=== PATIENT | female | born 1985 | race Caucasian/White ===

== ENCOUNTER → 2017-07-18 | Day surgery (SDC) | payer BC ==
[~2017-07-18] VITALS: Ht 162.6 cm; Wt 124.1 kg
[~2017-07-18] MED LIST: AMOX500T PO; AMT50 PO; CRAN500C2; FERR1TAB61; LIDOCAINE HCL 2% 2 ML VIAL (20MG/ML) ONE; MAGN400T6 PO; MECL1TAB42 PO; MIDAZOLAM HCL 1 MG/ML 2ML VIAL ONE; OMEP20TA PO; ONDANSETRON INJ 2 MG/ML 2 ML VIAL ONE; PRED10TA PO; PROPOFOL IV EMULSION 10 MG/ML 20 ML VIAL IV ONE; SODIUM CHLORIDE 0.9% 500ML 500 ML IV ONE; SUCR1TAB29 PO; TUMERIC
[2017-07-18 10:31] VITALS: Ht 162.6 cm; Wt 124.1 kg
[2017-07-18 10:46] VITALS: TEMP 37
--- NOTE | 2017-07-18 11:15 | Endo History and Physical ---
History & Physical Date of Service: Jul 18, 2017. Chief Complaint: Dysphagia Referring Physician: Felisa Bradford History of Present Illness patient with dysphagia Past Surgical History Hx Cardiac Surgery: No Hx Internal Defibrillator: No Hx Pacemaker: No Hx Abdominal Surgery: Yes (Lilo, ) Hx of Implantable Prosthesis: No Hx Post-Op Nausea and Vomiting: No Hx Cancer Surgery: No Hx Thoracic Surgery: No Hx Orthopedic: No Hx Urinary Tract Surgery: No Family History IBD Social History Smoking Status: Never Smoker Hx Substance Use: No Hx Alcohol Use: Yes (occassional) Allergies Coded Allergies: No Known Allergies (Unverified , 07/18/17) Current Medications Reported Home Medications Medications Dose Route/Sig Max Daily Dose Days Date Category Iron (Ferrous Sulfate) 45 Mg Tab 07/18/17 Reported Cranberry (Cranberry (Vaccinium Macrocarp) 500 Mg Cap 07/18/17 Reported [Tumeric ] 500 07/18/17 Reported Mag-Ox (Magnesium Oxide) 400 Mg Tab 250 Mg PO PRN 07/18/17 Reported Meclizine Hcl 25 Mg Tab 1 Tab PO TID PRN 30 07/18/17 Reported Elavil (Amitriptyline HCl) 50 Mg Tab 10 Mg PO PRN 07/18/17 Reported Augmentin 500MG (Amoxicillin & Pot Clavulanate) 1 Tab Tab 1 Tab PO BID 10 07/18/17 Reported Prednisone 10 Mg Tab 10 Mg PO PRN 07/18/17 Reported Carafate (Sucralfate) 1 Gm Tab 1 Tab PO QID 30 07/18/17 Reported Omeprazole 20 Mg Tab 1 Tab PO BID 90 07/18/17 Reported Vital Signs Weight (Kilograms): 124.09 Height (Feet): 5 Height (Inches): 4 Date Time Temp Pulse Resp B/P (MAP) Pulse Ox O2 Delivery O2 Flow Rate FiO2 07/18/17 10:46 37.0 83 18 143/82 (102) 97 Room Air Physical Exam General Appearance: no apparent distress Respiratory/Chest: Auscultation: breath sounds normal Cardiovascular: Heart Auscultation: RRR Abdomen: Inspection & Palpation: soft Liver: non-tender Assessment and Plan stable for endoscopy
--- NOTE | 2017-07-18 11:50 | GI REPORT ---
Procedure Date: 07/18/2017 11:15 AM Procedure: Upper GI endoscopy Indications: Dysphagia, Heartburn Medicines: See the Anesthesia note for documentation of the administered medications Complications: No immediate complications. Estimated Blood Loss: Estimated blood loss: none. Procedure: Pre-Anesthesia Assessment: - Prior to the procedure, a History and Physical was performed, and patient medications, allergies and sensitivities were reviewed. The patient's tolerance of previous anesthesia was reviewed. - The risks and benefits of the procedure and the sedation options and risks were discussed with the patient. All questions were answered and informed consent was obtained. - Patient identification and proposed procedure were verified prior to the procedure by the physician and the nurse. The procedure was verified in the pre-procedure area. - Pre-procedure physical examination revealed no contraindications to sedation. - After reviewing the risks and benefits, the patient was deemed in satisfactory condition to undergo the procedure. After obtaining informed consent, the endoscope was passed under direct vision. Throughout the procedure, the patient's blood pressure, pulse, and oxygen saturations were monitored continuously. The scope was introduced through the mouth, and advanced to the third part of duodenum. The upper GI endoscopy was accomplished without difficulty. The patient tolerated the procedure well. Findings: LA Grade A (one or more mucosal breaks less than 5 mm, not extending between tops of 2 mucosal folds) esophagitis with no bleeding was found. The stomach was normal. The examined duodenum was normal. The cardia and gastric fundus were normal on retroflexion. Impression: - LA Grade A reflux esophagitis. - No strictures seen. - Normal stomach. - Normal examined duodenum. - No specimens collected. Recommendation: - Discharge patient to home. Rosas Varela M.D. Rosas Varela MD 07/18/2017 11:49:56 AM This report has been signed electronically. Note Initiated On: 07/18/2017 11:15 AM I attest to the content of the Intraoperative Record and orders documented therein, exceptions below
--- NOTE | 2017-07-18 11:50 | Discharge Instructions ---
Endoscopy Patient Instructions Date / Procedure(s) Performed Jul 18, 2017. EGD Allergy Information Coded Allergies: No Known Allergies (Unverified , 07/18/17) Discharge Date / Findings Jul 18, 2017. Mild reflux esophagitis/no esophageal strictures seen. Provider Instructions Activity Restrictions - No exercising or heavy lifting for 24 hours. - Do not drink alcohol the day of the procedure. - Do not drive a car or operate machinery until the day after the procedure. - Do not make any important decisions or sign important papers in 24 hours after the procedure. Following Day: - Return to full activity which may include returning to work/school. Diet Start your diet with liquids and light foods (jello, soup, juice, toast). Then eat your usual diet if not nauseated. Treatment For Common After Affects For mild abdominal pain, bloating, or excessive gas: - Rest - Eat lightly - Lie on right side Follow-Up Information Follow-up with Felisa Bradford as scheduled Anesthesia Information What You Should Know You have had a procedure that required some medicine to reduce anxiety and discomfort. This treatment is called moderate sedation. After receiving the treatment, you may be sleepy, but you will be able to breathe on your own. The effects of the treatment may last for several hours. Follow these instructions along with Activity/Diet recommendations noted above: * Do NOT do anything where dizziness or clumsiness would be dangerous. * Rest quietly at home today, then you can be up and about tomorrow. * Have a responsible person stay with you the rest of today. * You may have had an I.V. today. If so, you may take the dressing off later today. Recommendations Call your doctor if: * Trouble breathing * Continuous vomiting for more than 24 hours * Temperature above 101 degrees * Severe abdominal pain or bloating * Pain not relieved by pain medicine ordered * There is increased drainage or redness from any incision * A large amount of rectal bleeding greater than 2-3 tablespoons. (If you had a polyp/s removed or have hemorrhoids, a small amount of blood - from the rectum is to be expected.) * You have any unanswered questions or concerns. IN THE EVENT OF A SERIOUS EMERGENCY, GO TO THE NEAREST EMERGENCY ROOM Your discharge instructions were prepared by provider Rosas Varela. Patient Instructions Signature Page Kadi Harris Patient (or Guardian) Signature/Date: I have read and understand the instructions given to me by my caregivers. Caregiver/RN/Doctor Signature/Date: The above-named patient and/or guardian has received patient instructions on this date. + Original Patient Signature Page (only) stays with chart. Please make copy for patient.
--- NOTE | 2017-07-18 12:02 | Anesthesiology Progress Note ---
Anesthesia Post Op Note Date & Time Jul 18, 2017 at 12:02 Vital Signs Pain Intensity: 0 Vital Signs Past 12 Hours Date Time Temp Pulse Resp B/P (MAP) Pulse Ox O2 Delivery O2 Flow Rate FiO2 07/18/17 11:51 105 18 145/90 (108) 95 Room Air 07/18/17 10:46 37.0 83 18 143/82 (102) 97 Room Air Notes Mental Status: alert / awake / arousable, participated in evaluation Pt Amnestic to Procedure: Yes Nausea / Vomiting: adequately controlled Pain: adequately controlled Airway Patency, RR, SpO2: stable & adequate BP & HR: stable & adequate Hydration State: stable & adequate Anesthetic Complications: no major complications apparent
[2017-07-18 12:21] VITALS: BP 146/87; PULSE 80; O2SAT 98
== END | disposition home or self-care (01) ==
LOC: C.GI 10:08
PROVIDERS: ATTEND Internal Medicine Gastroenterology
DX: K21.0 Gastro-esophageal reflux disease with esophagitis (principal); R13.10 Dysphagia, unspecified; F41.9 Anxiety disorder, unspecified

== ENCOUNTER 2017-11-30 11:36 | Emergency (ER) | payer BC ==
[~2017-11-30] VITALS: Ht 162.6 cm; Wt 127.3 kg
[~2017-11-30 11:36] MED LIST changes: -LIDOCAINE HCL 2% 2 ML VIAL (20MG/ML) ONE; -MIDAZOLAM HCL 1 MG/ML 2ML VIAL ONE; -ONDANSETRON INJ 2 MG/ML 2 ML VIAL ONE; -PROPOFOL IV EMULSION 10 MG/ML 20 ML VIAL IV ONE; -SODIUM CHLORIDE 0.9% 500ML 500 ML IV ONE
[2017-11-30 11:39] VITALS: TEMP 36.9; Ht 162.6 cm; Wt 127.3 kg
[2017-11-30] MEDS ORDERED: VITB2100 PO (11:57)
[2017-11-30] MEDS ORDERED: OMEP40CA41 PO (11:57)
[2017-11-30] MEDS ORDERED: TOPI50TA16 PO ×2 (11:57)
[2017-11-30] MEDS ORDERED: MAGN250T3 PO (11:57)
[2017-11-30] MEDS ORDERED: DiphenhydrAMINE HCL 50 MG/ML VIAL IV STA (12:16)
[2017-11-30] MEDS ORDERED: DEXAMETHASONE SOD INJ 4 MG/ML VIAL IV STA (12:16)
[2017-11-30] MEDS ORDERED: PROCHLORPERAZINE 5 MG/ML 2 ML VIAL IV STA (12:16)
[2017-11-30] MEDS ORDERED: KETOROLAC TROMETHAMINE 30 MG/ML VIAL IV STA (12:16)
--- NOTE | 2017-11-30 12:23 | EMERGENCY ROOM VISIT NOTE ---
History First contact with patient: 12:04 Chief Complaint: HEADACHE Stated Complaint: MIGRAINE LASTING A WEEK History of Present Illness The patient is a 32 year old female who presents to the Emergency Room with complaints of a severe migraine headache for the last week. The patient has a history of migraines. She says this feels like a persistent typical migraine. She has taken ibuprofen, Tylenol in addition to her baseline meds of Topamax, magnesium and vitamin B with no relief. She denies any recent illnesses such as cough, fever, sore throat or sinus infection. She is also had associated lightheadedness. She has nausea and photophobia. The patient called her neurologist today who sent her here for further evaluation/an MRI. Review of Systems 10 system review performed and negative unless noted in HPI or below Past Medical/Surgical History Migraines Vertigo Status post cholecystectomy, and tubal ligation Social History Smoking Status: Never Smoker Current/Historical Medications Scheduled Magnesium (Magnesium 250 mg), 250 MG PO DAILY Omeprazole (Prilosec), 40 MG PO DAILY Prochlorperazine Maleate (Compazine), 10 MG PO Q6H Riboflavin (Vitamin B-2), 400 MG PO DAILY Topiramate (Topamax), 100 MG PO QPM Topiramate (Topamax), 50 MG PO QAM Scheduled PRN Ketorolac Tromethamine (Toradol), 10 MG PO TID PRN for Pain Physical Exam Vital Signs Date Time Temp Pulse Resp B/P (MAP) Pulse Ox O2 Delivery O2 Flow Rate FiO2 11/30/17 17:13 75 16 110/75 98 11/30/17 16:08 82 20 145/72 96 Room Air 11/30/17 14:22 100 20 161/85 96 Room Air 11/30/17 13:14 83 15 126/76 97 Room Air 11/30/17 11:39 36.9 82 16 151/92 97 Room Air Physical Exam VITALS: Vitals are noted on the nurse's note and reviewed by myself. Vital signs stable. GENERAL: 32-year-old female, moderately uncomfortable in appearance, SKIN: The skin was without rashes, erythema, edema, or bruising. HEAD: Normocephalic atraumatic. EARS: External auditory canals clear, tympanic membranes pearly vazquez without erythema or effusion bilaterally. EYES: Pupils equal round and reactive to light and accommodation. Conjunctivae without injection, sclerae without icterus. Extraocular movements intact. MOUTH: Mucous membranes slightly dry. Tonsils are not enlarged. Pharynx without erythema or exudate. Uvula midline. Airway patent. Tongue does not deviate. NECK: Supple without nuchal rigidity. No lymphadenopathy. Cervical spine is nontender. No JVD. HEART: Regular rate and rhythm without murmurs gallops or rubs. LUNGS: Clear to auscultation bilaterally without wheezes, rales or rhonchi. No accessory muscle use. ABDOMEN: Positive bowel sounds x 4.Soft, MUSCULOSKELETAL: No muscle atrophy, erythema, or edema noted. Strength 5/5 throughout. NEURO: Patient was alert and oriented to person place and time. Normal sensation to touch. No focal neurological deficits. Medical Decision & Procedures ER Provider Diagnostic Interpretation: MRI brain combo IMPRESSION: Normal study. The above report was generated using voice recognition software. It may contain grammatical, syntax or spelling errors. Electronically signed by: Kimo Tabares M.D. 11/30/2017 3:50 PM Dictated Date/Time: 11/30/2017 3:48 PM The status of this report is Signed. Draft = Not yet reviewed or approved by Radiologist. Signed = Reviewed and approved by Radiologist. Laboratory Results 11/30/17 11:50 Red Blood Count 4.62, Mean Corpuscular Volume 88.5, Mean Corpuscular Hemoglobin 29.9, Mean Corpuscular Hemoglobin Concent 33.7, Mean Platelet Volume 10.4, Neutrophils (%) (Auto) 61.3, Lymphocytes (%) (Auto) 30.0, Monocytes (%) (Auto) 5.5, Eosinophils (%) (Auto) 2.8, Basophils (%) (Auto) 0.2, Neutrophils # (Auto) 5.33, Lymphocytes # (Auto) 2.61, Monocytes # (Auto) 0.48, Eosinophils # (Auto) 0.24, Basophils # (Auto) 0.02 11/30/17 11:50 Test 11/30/17 11:50 11/30/17 14:35 White Blood Count 8.70 K/uL (4.8-10.8) Red Blood Count 4.62 M/uL (4.2-5.4) Hemoglobin 13.8 g/dL (12.0-16.0) Hematocrit 40.9 % (37-47) Mean Corpuscular Volume 88.5 fL (80-100) Mean Corpuscular Hemoglobin 29.9 pg (25-34) Mean Corpuscular Hemoglobin Concent 33.7 g/dl (32-36) Platelet Count 373 K/uL (130-400) Mean Platelet Volume 10.4 fL (7.4-10.4) Neutrophils (%) (Auto) 61.3 % Lymphocytes (%) (Auto) 30.0 % Monocytes (%) (Auto) 5.5 % Eosinophils (%) (Auto) 2.8 % Basophils (%) (Auto) 0.2 % Neutrophils # (Auto) 5.33 K/uL (1.4-6.5) Lymphocytes # (Auto) 2.61 K/uL (1.2-3.4) Monocytes # (Auto) 0.48 K/uL (0.11-0.59) Eosinophils # (Auto) 0.24 K/uL (0-0.5) Basophils # (Auto) 0.02 K/uL (0-0.2) RDW Standard Deviation 44.0 fL (36.4-46.3) RDW Coefficient of Variation 13.6 % (11.5-14.5) Immature Granulocyte % (Auto) 0.2 % Immature Granulocyte # (Auto) 0.02 K/uL (0.00-0.02) Anion Gap 6.0 mmol/L (3-11) Est Creatinine Clear Calc Drug Dose 123.0 ml/min Estimated GFR () 102.9 Estimated GFR (Non- 88.8 BUN/Creatinine Ratio 15.4 (10-20) Calcium Level 9.4 mg/dl (8.5-10.1) Total Bilirubin 0.2 mg/dl (0.2-1) Aspartate Amino Transf (AST/SGOT) 13 U/L (15-37) Alanine Aminotransferase (ALT/SGPT) 26 U/L (12-78) Alkaline Phosphatase 77 U/L (45-117) Total Protein 7.5 gm/dl (6.4-8.2) Albumin 3.7 gm/dl (3.4-5.0) Globulin 3.8 gm/dl (2.5-4.0) Albumin/Globulin Ratio 1.0 (0.9-2) Lyme Disease IgG Antibody NEG (NEG) Lyme Disease IgM Antibody NEG (NEG) Urine Color DK YELLOW Urine Appearance CLOUDY (CLEAR) Urine pH 7.5 (4.5-7.5) Urine Specific [place] 1.024 (1.000-1.030) Urine Protein NEG (NEG) Urine Glucose (UA) NEG (NEG) Urine Ketones NEG (NEG) Urine Occult Blood NEG (NEG) Urine Nitrite NEG (NEG) Urine Bilirubin NEG (NEG) Urine Urobilinogen NEG (NEG) Urine Leukocyte Esterase NEG (NEG) Urine WBC (Auto) 1-5 /hpf (0-5) Urine RBC (Auto) 0-4 /hpf (0-4) Urine Hyaline Casts (Auto) 1-5 /lpf (0-5) Urine Epithelial Cells (Auto) >30 /lpf (0-5) Urine Bacteria (Auto) 1+ (NEG) Urine Mucus PRESENT (NONE PRSENT) Urine Test NEG (NEG) Medications Administered Medications (Trade) Dose Ordered Sig/Vanessa Route Start Time Stop Time Status Last Admin Dose Admin Sodium Chloride 1,000 ml @ 999 mls/hr Q1H1M ONCE IV 11/30/17 12:30 11/30/17 13:30 DC 11/30/17 12:48 999 MLS/HR Diphenhydramine HCl (Benadryl Inj) 50 mg NOW STAT IV 11/30/17 12:16 11/30/17 12:20 DC 11/30/17 12:48 50 MG Prochlorperazine Edisylate (Compazine Inj) 10 mg NOW STAT IV 11/30/17 12:16 11/30/17 12:20 DC 11/30/17 12:48 10 MG Ketorolac Tromethamine (Toradol Inj) 30 mg NOW STAT IV 11/30/17 12:16 11/30/17 12:20 DC 11/30/17 12:49 30 MG Dexamethasone Sodium Phosphate (Decadron Inj) 10 mg NOW STAT IV 11/30/17 12:16 11/30/17 12:20 DC 11/30/17 12:49 10 MG ED Course Patient was seen and examined Vital signs including blood pressure were reviewed medications list was verified with patient Labs were obtained, and a saline lock was established The patient was medicated with Toradol 30 mg IV, Benadryl 50 mg IV, Compazine 10 mg IV and Decadron 10 mg IV. She was hydrated with 1 liter of normal saline Upon reevaluation, the patient was feeling much improved. We discussed the results of her workup at length. She voiced understanding, and was comfortable being discharged home. I reviewed discharge instructions the patient. They voiced understanding and had no further questions. Medical Decision Differential includes: Migraine, acute intracranial bleed, trauma, meningitis, encephalitis, increased intracranial pressure, mass or mass effect, facial or dental infection, temporal arteritis, CVA, TIA, acute hypertensive emergency, sinusitis, carbon monoxide exposure. This patient is a pleasant 32-year-old female that presents to the emergency department with an ongoing migraine for the last several days. The patient reports that this is similar to her previous migraines. On exam, she is nontoxic in appearance. She has no signs of meningismus. No recent infections. The patient's workup reveals no leukocytosis. Her MRI of the brain was normal. The patient had excellent symptomatic relief in the emergency department. I believe she is stable to be discharged home with close follow-up from her neurologist for her migraine headaches. She was comfortable with this plan. She agrees to return with worsening symptoms This chart was completed in part utilizing [email or web address] Speech Voice Recognition software. Attempts were made to minimize the grammatical errors, random word insertions, pronoun errors and incomplete sentences. Any formal questions or concerns about the content, text or information contained within the body of this dictation should be directly addressed to the provider for clarification. Medication Reconcilliation Current Medication List: was personally reviewed by me Blood Pressure Screening Patient's blood pressure: Elevated blood pressure Blood pressure disposition: Elevated BP felt to be situational Impression Primary Impression: Migraine Departure Information Dispostion Home / Self-Care Condition GOOD Prescriptions Prochlorperazine Maleate (COMPAZINE) 10 Mg Tab 10 MG PO Q6H, #15 TAB Prov: Kathe Robertson PA-C 11/30/17 Ketorolac Tromethamine (TORADOL) 10 Mg Tab 10 MG PO TID Y for Pain, #12 TAB Prov: Kathe Robertson PA-C 11/30/17 Referrals Felisa Bradford D.O. (PCP) Atul Daley M.D. (MEDICINE) Patient Instructions My [facility] Additional Instructions You have been evaluated in the emergency department for a migraine headache. An MRI was performed and normal. Please take Toradol 1 tab every 8 hours as needed for pain. You may also take Benadryl 50 mg every 8 hours for headache/pain Compazine 1 tab every 6 hours for nausea Please try to rest in a dark room. Stay well-hydrated. Please follow-up with your primary care physician in addition to your neurologist. Call tomorrow for a follow-up appointment. Please do not hesitate to return to the emergency department with any new, worsening or concerning symptoms It was a pleasure participating in your care today Work Instructions Return To Work: 1 day
[2017-11-30 12:26] LABS: BASO % 0.2 %; BASO ABS # 0.02 K/uL (0-0.2); EOS % 2.8 %; EOS ABS # 0.24 K/uL (0-0.5); HEMATOCRIT 40.9 % (37-47); HEMOGLOBIN 13.8 g/dL (12.0-16.0); IG# 0.02 K/uL (0.00-0.02); LYMPH ABS # 2.61 K/uL (1.2-3.4); MEAN CELL VOLUME 88.5 fL (80-100); MEAN CORPUSCULAR HEMOGLOBIN 29.9 pg (25-34); MEAN CORPUSCULAR HGB CONC 33.7 g/dl (32-36); MEAN PLATELET VOLUME 10.4 fL (7.4-10.4); MONO % 5.5 %; MONO ABS # 0.48 K/uL (0.11-0.59); NEUT % 61.3 %; NEUT ABS # 5.33 K/uL (1.4-6.5); PLATELET COUNT 373 K/uL (130-400); RED CELL DISTRIBUTION WIDTH CV 13.6 % (11.5-14.5)
[2017-11-30] MEDS ORDERED: SODIUM CHLORIDE 0.9% 1000ML 1,000 ML IV ONE (12:30)
[2017-11-30 12:35] LABS: ALBUMIN 3.7 gm/dl (3.4-5.0); CALCIUM 9.4 mg/dl (8.5-10.1); CREATININE 0.86 mg/dl (0.60-1.20); POTASSIUM 3.8 mmol/L (3.5-5.1)
[2017-11-30 12:38] LABS: TOTAL PROTEIN 7.5 gm/dl (6.4-8.2)
[2017-11-30] MEDS ORDERED: GADAVIST IV PRN (15:45)
--- NOTE | 2017-11-30 15:52 | DIAGNOSTIC IMAGING REPORT ---
BRAIN COMBO CLINICAL HISTORY: severe migraine tinnitus, lightheaded mental status change COMPARISON STUDY: No previous studies for comparison. TECHNIQUE: Utilizing a 1.5 Jenise magnet and dedicated coil, multiplanar, multiecho imaging of the brain was performed pre and postcontrast administration. IV administration of 12 mL of Gadavist contrast was uneventful. FINDINGS: Diffusion-weighted images are normal. Signal characteristics of the cerebellar as well as cerebral hemispheres are within normal limits. The ventricular system is midline. Internal artery canals are symmetric. Sella and parasellar regions are unremarkable. The pituitary is unremarkable. Pituitary stock and optic chiasm show no evidence for displacement. IMPRESSION: Normal study. The above report was generated using voice recognition software. It may contain grammatical, syntax or spelling errors. Electronically signed by: Kimo Tabares M.D. 11/30/2017 3:50 PM Dictated Date/Time: 11/30/2017 3:48 PM
[2017-11-30] MEDS ORDERED: KETO10TA PO (16:52)
[2017-11-30] MEDS ORDERED: PROC1TAB5 PO (16:52)
[2017-11-30 17:13] VITALS: BP 110/75; PULSE 75; O2SAT 98
== END 2017-11-30 17:14 | disposition home or self-care (01) ==
LOC: C.EDB 11:37
DX: G43.909 Migraine, unspecified, not intractable, without status migrainosus (principal)